=== PATIENT | male | born 1960 | race Caucasian/White ===

== ENCOUNTER 2024-04-25 02:25 | Emergency (ER) | payer MEDICARE, OTHER, SELFPAY ==
[2024-04-25 02:28] VITALS: BP 143/82
[2024-04-25 02:58] VITALS: BMI 29.7
--- NOTE | 2024-04-25 03:19 | ED.GENMED ---
History of Present Illness
General
Chief Complaint: Ear Problem
Source: patient
Exam Limitations: none
Time Seen by Provider: 04/25/24 03:14
Nursing documentation reviewed up to this point in time: agreed with
History of Present Illness
History of Present Illness:
This is a 64-year-old gentleman who reports no significant past medical history complains of 2-day history of right ear pain. Currently visiting this area for a soccer tournament. Arrived via air travel yesterday. He complains of moderate pain to
right ear but has not had a fever, no drainage from his ear, no nasal congestion, no sore throat, no cough, no headache. He took ibuprofen 200 mg just prior to arrival.
He reports somewhat similar episodes of ear pain generally once per year, usually related to swimming/swimmer's ear.
Past History
Past History
ED Past Medical History: None
ED Past Surgical History: Cardiac (Valve repair)
Social History
Tobacco: Non-smoker
Alcohol: Occasional
Living: with family
Family History
Family History: Other (Noncontributory)
Phy Exam
Physical Exam
Physical Exam:
GENERAL: 64-year-old gentleman appears his stated age, awake and alert, pleasant, appears in no acute distress.
EYE: anicteric
NECK: Supple, nontender, no meningismus, no significant adenopathy.
ENT: posterior pharynx is clear, oral mucosa is moist. Right TM is moderately injected and dull mid to superior aspect. Canal is clear. Left TM and canal are clear. Nares patent.
CARDIAC: Regular rate and rhythm. no murmur.
LUNGS: Clear breath sounds bilaterally, no acute respiratory distress, no wheezes/rales/rhonchi
ABDOMEN: Soft, nondistended, without focal tenderness
NEUROLOGICAL: Alert and oriented x3, no focal neuro deficits. Gait is aguirre and steady.
SKIN: Warm and dry, normal color, skin intact. No rash.
MUSCULOSKELETAL: No C/C/E. peripheral pulses are full and equal b/l. No palpable tenderness.
PSYCH: Normal and appropriate interaction.
Course
Orders/Labs/Results
Orders:
Orders
04/25/24 03:18
Doxycycline [Vibramycin] 100 mg PO NOW STA
Ibuprofen [Motrin] 600 mg PO NOW STA
Vital Signs
Initial and Last Documented VS:
Initial Vital Signs
Temp Pulse Resp BP Pulse Ox
98.2 F 79 14 143/82 96
04/25/24 02:28 04/25/24 02:28 04/25/24 02:28 04/25/24 02:28 04/25/24 02:28
Last Documented Vital Signs
Temp Pulse Resp BP Pulse Ox
98.2 F 79 14 143/82 96
04/25/24 02:28 04/25/24 02:28 04/25/24 02:28 04/25/24 02:28 04/25/24 02:28
MDM/Problems Addressed
Differential Diagnosis Includes:
Patient presents with 2-day history of right ear pain. No associated symptoms.
Exam remarkable for injected and dull right TM consistent with acute otitis media. External canal is clear.
Will initiate a course of doxycycline for treatment of acute otitis media.
Will add prescription strength ibuprofen for pain.
Recommending supportive measures, elevating head of bed at nighttime. Local heat.
Follow-up with PCP for recheck upon returning home.
Return precautions discussed.
*Pulse Oximetry
Patient hypoxic: no
*Critical Care Note
Total Time (30-74mins, 75-104mins- exclusive of procedures): Not Applicable
ED Attending Note
-
Portions of this chart may have been created with voice recognition software.� Occasional wrong word or��sound alike� substitutions may have occurred due to the inherent limitations of voice recognition software.
Discharge Plan
Departure
Patient Disposition: Home (Routine Discharge)
Date of Disposition: 04/25/24
Time of Disposition: 03:23
Patient with high blood pressure during this ER visit?: Yes
Condition: Good
Discharge Problem:
Acute otitis media
Instructions: Ear Infections in Adults (DC), BLOOD PRESSURE
Prescriptions:
New
ibuprofen 800 mg tablet
800 mg PO QIDPRN PRN (Reason: pain, fever) Qty: 30 0RF
doxycycline monohydrate 100 mg capsule
100 mg PO BID Qty: 20 1RF
Referrals:
PRIVATE,PHYSICIAN [Family Provider] - As needed
Interventions
Interventions:
*Risk Screen - Suicide Last Done: 04/25/24 02:28
*General Assessment Last Done: 04/25/24 02:28
*Neglect/Abuse Screening Last Done: 04/25/24 02:28
ED- Fall Risk Assessment Last Done: 04/25/24 02:56
Discharge Date and Time
Print Language: [id number]
[2024-04-25] MEDS: MOTRIN 600 MG PO (03:40)
[2024-04-25] MEDS: VIBRAMYCIN 100 MG PO (03:40)
== END 2024-04-25 03:43 | disposition home or self-care (01) ==
LOC: EMR 02:25
PROVIDERS: EMERGENCY PHYSICIAN Emergency Medicine
DX: H66.91 Otitis media, unspecified, right ear (principal); R03.0 Elevated blood-pressure reading, without diagnosis of hypertension; Z88.0 Allergy status to penicillin
CPT/HCPCS: 99283